=== PATIENT | female | born 1980 | race African-American/Black ===

== ENCOUNTER 2017-03-21 09:08 | Day surgery (SDC) | payer BC ==
[~2017-03-21] VITALS: Ht 165.1 cm; Wt 127.2 kg
[2017-03-21 09:35] VITALS: BP 143/96; PULSE 80; RESP 20; TEMP 98.2; O2SAT 98
[2017-03-21] MEDS ORDERED: MULT-65 PO (09:49)
[2017-03-21] MEDS ORDERED: ERGO2000 PO (09:49)
[2017-03-21] MEDS ORDERED: PHEN1TAB84 PO (09:49)
[2017-03-21] MEDS ORDERED: FERR325T PO (09:49)
[2017-03-21 10:00] VITALS: BP 87/55; PULSE 100; RESP 20; TEMP 98.3; O2SAT 92
[2017-03-21 11:03] LABS: AUTOMATED NEUTROPHIL # 3.6 TH/MM3 (1.8-7.7); BASOPHIL # 0.1 TH/MM3 (0-0.2); BASOPHIL % 0.8 % (0.0-2.0); EOSINOPHIL # 0.1 TH/MM3 (0-0.4); EOSINOPHIL % 1.4 % (0.0-4.0); HEMATOCRIT 42.1 % (35.0-46.0); HEMO FLAGS DIFF FINAL; LYMPH % 37.8 % (9.0-44.0); LYMPHOCYTE # 2.5 TH/MM3 (1.0-4.8); MEAN CELL VOLUME 85.8 FL (80.0-100.0); MEAN CORPUSCULAR HEMOGLOBIN 27.9 PG (27.0-34.0); MEAN CORPUSCULAR HGB CONC 32.5 % (32.0-36.0); MONO % 5.9 % (0.0-8.0); NEUT % 54.1 % (16.0-70.0); PLATELET COUNT 212 TH/MM3 (150-450); RED BLOOD COUNT 4.91 MIL/MM3 (4.00-5.30); RED CELL DISTRIBUTION WIDTH 14.7 % (11.6-17.2); WHITE BLOOD COUNT 6.6 TH/MM3 (4.0-11.0)
[2017-03-21 11:13] LABS: PROTHROMBIN TIME - PATIENT 10.7 SEC (9.8-11.6)
[2017-03-21 11:23] LABS: BICARBONATE 28.7 MEQ/L (21.0-32.0)
[2017-03-21 11:24] LABS: POTASSIUM 3.8 MEQ/L (3.5-5.1)
[2017-03-21] MEDS ORDERED: SODIUM CHLOR 0.9% 1000 ML INJ 1,000 ML IV SCH (11:45)
--- NOTE | 2017-03-21 12:17 | PD.RAD ---
Post Procedure Progress Note Pre Procedure Diagnosis: (1) Gait disturbance Post Procedure Diagnosis: (1) Gait disturbance Procedure Date: March 21, 2017 Supervising Radiologist: Thomas Jack JR Proceduralist/Assist: Rashida Austin RT(R), RT Carlie(R) Anesthesia: Local Plan of Activity Patient to Unit: ROPU Patient Condition: Good See PACS Report for procedural detail/treatment Spinal Procedure Lumbar Puncture L4-L5 Fluid Removal (CCs): 12 Fluid Description: Clear Puncture Time: 11:59 Findings: Opening pressure: 15 cm H20 Closing pressure: 12 cm H20 Jr. Guero,Thomas Jade MD March 21, 2017 12:17
[2017-03-21 12:20] VITALS: BP 139/95; PULSE 80; RESP 18; TEMP 98; O2SAT 93
[2017-03-21 13:09] LABS: GROSS BLOOD TUBE #1 0 (0); SUPERNATE COLOR TUBE #1 CLEAR (CLEAR); VOLUME TUBE # 1 2.5 ML
[2017-03-21 13:10] LABS: CSF LYMPHOCYTES 0 %; CSF MONOCYTES 100 %; CSF NEUTROPHILS 0 %; GROSS BLOOD TUBE #2 0 (0); GROSS BLOOD TUBE #3 0 (0); GROSS BLOOD TUBE #4 0 (0); SUPERNATE COLOR TUBE #2 CLEAR (CLEAR); SUPERNATE COLOR TUBE #3 CLEAR (CLEAR); SUPERNATE COLOR TUBE #4 CLEAR (CLEAR); VOLUME TUBE # 2 2.6 ML; VOLUME TUBE # 3 2.1 ML; VOLUME TUBE # 4 5.7 ML; WBC TUBE #4 7 /MM3 (0-10)
--- NOTE | 2017-03-21 16:03 | RADRPT ---
EXAM DATE/TIME: 03/21/2017 12:40 [facility] COMPARISON: No previous studies available for comparison. 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 MEDICAL HISTORY : Headaches, Blurred vision, Slurred speech SURGICAL HISTORY : ENCOUNTER: Initial ACUITY: 1 month PAIN SCORE: 0/10 LUMBAR PUNCTURE TIME: 1159 hours FLUORO TIME: 1 minutes IMAGE SERIES: 0 ACCESS LEVEL: L4-5 OPENING PRESSURE: 15 cm of water CLOSING PRESSURE: 12 cm of water FLUID: 12 cc of clear CSF was collected and sent to the laboratory for analysis. PROCEDURE : 1. Fluoroscopic guided lumbar puncture. 2. Recording of opening pressure. The risks, benefits and alternatives to the procedure were explained and verbal and written consent w as obtained. The site was prepped in sterile fashion. Full sterile technique was used, including ca p, mask, sterile gloves and gown and a large sterile sheet. Hand hygiene and 2% chlorhexidine and/or betadine/alcohol prep was utilized per protocol for cutaneous antisepsis. The skin and subcutaneous tissues were infiltrated with local anesthetic solution. With fluoroscopic guidance the lumbar thecal sac was punctured at the above level described above and the opening pressure was recorded. The above described fluid was removed without difficulty. The patient tolerated the procedure well and there were no complications. CONCLUSION: Uncomplicated fluoroscopically guided lumbar puncture with pressures as above. Thomas Jack Jr., MD on March 21, 2017 at 16:01 Board Certified Radiologist. This report was verified electronically.
[2017-03-22 15:44] LABS: ALBUMIN SERUM 3520 mg/dL (3200 - 4800); IGG CSF 5.3 mg/dL (<=8.1); IGG INDEX CSF 0.85 (<=0.85); IGG SERUM 1180 mg/dL (767 - 1590); IGG/ALBUMIN CSF 0.29 (<=0.21); IGG/ALBUMIN SERUM 0.34 (<=0.40); OLIGOCLONAL BANDING CSF 13 bands (()); OLIGOCLONAL BANDING INTERPRET 11 bands (<4); OLIGOCLONAL BANDING SERUM 2 bands (()); SYNTHESIS RATE CSF 11.02 mg/24 h (<=12)
[2017-03-24 12:25] LABS: CSF CRYPTOCOCCUS AG CONF ND (NOT DETECTD)
[2017-03-25 15:34] LABS: LYME IGG IMMUNOBLOT CSF None Detected bands (None Detected); LYME IGM IMMUNOBLOT CSF None Detected bands (None Detected); TOXOPLASMA AB IGG <0.90 (()); TOXOPLASMA AB IGM (CSF) <0.80 (())
[2017-03-26 23:54] LABS: VDRL CSF NON-REACTIVE (())
== END 2017-03-21 15:15 | disposition home or self-care (01) ==
LOC: HROP 09:08 → HRIP 09:09 → HROP 15:15
PROVIDERS: ATTEND Psychiatry & Neurology Neurology
DX: R26.9 Unspecified abnormalities of gait and mobility (principal); R51 Headache; H53.8 Other visual disturbances; R47.81 Slurred speech
CPT/HCPCS: 62270; 77003; 80048; 82040; 82042; 82784; 82945; 83873; 83916; 84157; 85025; 85610; 85730; 86403; 86592; 86618; 86777; 86778; 89051

== ENCOUNTER 2017-03-28 10:46 | Emergency (ER) | payer BC ==
[~2017-03-28] VITALS: Ht 167.6 cm; Wt 100.0 kg
[~2017-03-28 10:46] MED LIST: ERGO2000 PO; FERR325T PO; MULT-65 PO; PHEN1TAB84 PO
[2017-03-28 10:50] VITALS: BP 132/84; PULSE 102; RESP 24; TEMP 97.7; O2SAT 99
[2017-03-28] MEDS ORDERED: FERR1TAB52 PO (11:09)
[2017-03-28] MEDS ORDERED: ADIP37.55 PO (11:09)
--- NOTE | 2017-03-28 12:17 | PD ---
HPI Chief Complaint: Fall Time Seen by Provider: 11:18 Travel History International Travel<30 days: No Contact w/Intl Traveler<30days: No Traveled to known affect area: No History of Present Illness HPI This patient got up at 4 AM to go to into the bathroom and had a fall in the bathroom. She struck the right brow area. No LOC. No head or neck pain. She feels well. She is currently working with neurologist to evaluate some waxing and waning neurologic symptoms including gait abnormality. She had an LP a week ago for this reason. She denies any specific neurologic complaint at this time. Symptoms severity is mild PFSH Past Medical History Cancer: No Cardiovascular Problems: No Diabetes: No Endocrine: No Genitourinary: No Hepatitis: No Hiatal Hernia: No Immune Disorder: No Medical other: No Musculoskeletal: Yes (unsteady gait, RT LEG NUMBNESS) Neurologic: No Psychiatric: No Reproductive: No Respiratory: No Thyroid Disease: No ?: Not LMP: 03/2017 Past Surgical History Abdominal Surgery: No AICD: No Cardiac Surgery: No Section: Yes (X1) Ear Surgery: No Endocrine Surgery: No Eye Surgery: No Genitourinary Surgery: No Gynecologic Surgery: Yes (c section) Joint Replacement: No Oral Surgery: Yes (WISDOM TEETH REMOVED) Pacemaker: No Thoracic Surgery: No Social History Alcohol Use: No Tobacco Use: No Substance Use: No Allergies-Medications (Allergen,Severity, Reaction): Coded Allergies: Penicillin (Verified Allergy, Intermediate, Rash, 03/28/17) Reported Meds & Prescriptions Reported Meds & Active Scripts Active Reported Iron High-Potency (Ferrous Sulfate) 325 Mg Tab 325 Mg PO DAILY Adipex-P (Phentermine HCl) 37.5 Mg Tab 37.5 Mg PO DAILY Vitamin D2 (Ergocalciferol) 2,000 Unit Tab 50,000 Units PO WEEKLY Multi-Vitamin Daily (Multiple Vitamin) 1 Tab Tab 1 Tab PO DAILY Review of Systems General / Constitutional: No: Fever HENT: No: Headaches Cardiovascular: No: Chest Pain or Discomfort Respiratory: No: Cough Physical Exam Narrative NEUROLOGICAL: Awake and alert. Pupils are equal round and reactive. Motor and sensory grossly within normal limits. Five out of 5 muscle strength in all muscle groups. Normal speech. NECK: Symmetrical appearance, midline trachea. No mass or crepitus. Thyroid without enlargement, tenderness, or mass. SKIN: Focused skin assessment reveals no rash or ulcers. Skin is warm and dry. Palpation shows no induration or nodules. Head: Has a shallow 1 cm laceration above the right brow with no bony tenderness Data Data Last Documented VS Vital Signs Date Time Temp Pulse Resp B/P Pulse Ox O2 Delivery O2 Flow Rate FiO2 03/28/17 10:50 97.7 102 24 132/84 99 Room Air MDM Medical Decision Making Medical Screen Exam Complete: Yes Emergency Medical Condition: Yes Medical Record Reviewed: Yes Differential Diagnosis Contusion, laceration, concussion Narrative Course I have reviewed the patient's electronic medical record. Reviewed her lumbar puncture outpatient radiology note Patient is neurologically intact without symptoms No headache or LOC No indication for emergent brain CT Is given head injury precautions Procedure note: I cleaned the area of the laceration and dried it I closed it with Dermabond, 1 tube used No complications or anesthesia needed Wound care instructions provided Diagnosis Primary Impression: Head injury due to trauma Qualified Code: S09.90XA - Head injury due to trauma, initial encounter Additional Impression: Laceration of brow without complication Qualified Code: S01.81XA - Laceration of brow without complication, initial encounter Additional Instructions: The patient was advised to follow up with their physician and return if they worsen. Med/Other Pt SpecificInfo: Other Disposition: 01 DISCHARGE HOME Condition: Stable Maykel Parrish MD March 28, 2017 12:17
== END 2017-03-28 12:53 | disposition home or self-care (01) ==
LOC: NEPC 10:46
DX: S01.81XA Laceration without foreign body of other part of head, initial encounter (principal); W19.XXXA Unspecified fall, initial encounter; Y92.002 Bathroom of unspecified non-institutional (private) residence as the place of occurrence of the external cause
CPT/HCPCS: 12011